=== PATIENT | male | born 1955 | race Caucasian/White ===

== ENCOUNTER 2020-10-25 18:54 | Emergency (ER) | payer MEDICARE, MEDICAID ==
[~2020-10-25] VITALS: Ht 177.8 cm; Wt 84.1 kg
[~2020-10-25 18:54] MED LIST: LORTAB
[2020-10-25 18:58] VITALS: BP 150/96
== END 2020-10-25 19:04 | disposition left against medical advice (07) ==
LOC: ER 18:54
DX: M54.2 Cervicalgia (principal); Z53.21 Procedure and treatment not carried out due to patient leaving prior to being seen by health care provider